=== PATIENT | female | born 1945 | race Caucasian/White ===

== ENCOUNTER 2022-01-19 14:32 | Emergency (ER) | payer MEDICARE, OTHER ==
[~2022-01-19] VITALS: Ht 162.6 cm; Wt 59.0 kg
== END 2022-01-19 17:56 | disposition home or self-care (01) ==
LOC: ED 14:32
DX: R60.0 Localized edema (principal); I10 Essential (primary) hypertension
CPT/HCPCS: 93971; 99284-25

== ENCOUNTER 2022-02-20 00:04 | Observation (INO) | payer MEDICARE, OTHER ==
[~2022-02-20] VITALS: Ht 162.6 cm; Wt 63.4 kg
[2022-02-20] MEDS ORDERED: DICLOFENAC SOD100 G1 TOP (00:30)
[2022-02-20] MEDS ORDERED: BACLOFEN10 MG PO (00:30)
[2022-02-20] MEDS ORDERED: TRIAMCINOLONE A15 G1 TOP (00:31)
[2022-02-20] MEDS ORDERED: CITALOPRAM HBR10 MG PO (00:31)
[2022-02-20] MEDS ORDERED: CARBAMAZEPINE200 MG PO (00:31)
[2022-02-20] MEDS ORDERED: AMITRIPTYLINE H25 MG PO (00:32)
[2022-02-20] MEDS ORDERED: SIMVASTATIN20 MG PO (00:32)
[2022-02-20] MEDS ORDERED: FAMOTIDINE20 MG PO (00:32)
[2022-02-20] MEDS ORDERED: LISINOPRIL5 MG PO (00:32)
[2022-02-20] MEDS ORDERED: ALENDRONATE SOD70 MG PO (00:33)
--- NOTE | 2022-02-20 04:00 | NUR ---
PT ARRIVED TO THE FLOOR, PT HAD STOOL INCONT. CLEANED PT UP AND PLACED ATTENDS ON PT. PT ON LEVOPHED AT THIS TIME. MAP GREATER THAN 80, TITRATED LEVOPHED. RSP EVEN AND UNLABORED. PT DENIES ANY CONCERNS AT THIS TIME. WILL CONTINUE TO MONITOR.
--- NOTE | 2022-02-20 05:58 | NUR ---
PT LAYING IN BED C/O GROIN PAIN AND AB PAIN. ASKING FOR PRN PAIN MEDS. NO PO MEDS AVAILABLE INFORMED PT THAT MD WILL BE IN SOON OR I WILL CALL FOR SOMETHING . PT IS ASKING FOR TYLENOL . PT REPORTS HAD ANOTHER INCONT EPISODE WILL CLEAN PT UP . VSS DC'D LEVOPHED AT THIS TIME MAP 72. CALL LIGHT WITHIN REACH WILL CONTINUE TO MONITOR
--- NOTE | 2022-02-20 06:34 | NUR ---
PT HAD ANOTHER INCONT BM. BRIGHT RED BLOOD NOTED. PT REPORTS IRRITAION TO WILFREDO AREA ASKING FOR PRN PAIN MEDS. WILL MEDICATE WITH TYLENOL APPLIED BARRIER CREAM, WILL CONTINUE TO MONITOR
--- NOTE | 2022-02-20 07:39 | NUR ---
REPORT RECEIVED FROM RUTH MUNOZ. PT RESTING IN BED WITH EYES CLOSED, RESPIRATIONS EVEN AND UNLABORED, RR OF 14. BLOOD PRESSURE STABLE AT 116/55. NO ADDITIONAL NEEDS AT THIS TIME. BED RAILS UP. CALL LIGHT WIHTIN REACH. PT ALLOWED TO REST.
--- NOTE | 2022-02-20 07:44 | NUR ---
MORNING ASSESSMENT DUE. PT RESTING IN BED WITH EYES CLOSED. RESPIRATIONS EVEN AND UNLABORED. RR OF 12 WITH OXGYEN SATRUATIONS 99% ON ROOM AIR. PT AWAKENS TO VOICE. PT REPORTS SHE IS FEELING "100% BETTER." PT DENIES PAIN AT THIS TIME STATING "THE TYELNOL REALLY HELPS." PT DENIES ABDOMINAL CRAMPING. BLOOD PRESSURE REMAINS STABLE. PT REPORTS SHE HAS VOIDED IN HER DEPENDS. PT STATES SHE FELT THE URGE TO VOID BUT "I JUST WANTED TO SLEEP AND NOT GET UP SO I WENT IN MY DEPENDS." PT ASSIST WITH ROLLING SIDE TO SIDE. WILFREDO CARE DONE. DEPENDS CHANGED. IV LINES ASSESSED. WNL, BLOOD RETURN NOTED FROM BOTH LINES. BOTH LINES SALINE LOCKED, ALCOHOL CAPS APPLIED. NO S/S OF PHLEBITIS NOTED. CENTRAL LINE WNL, DRESSING C/D/I. WHITE LINE INFUSING IV FLUIDS, BLUE AND BROWN LINES SALINE LOCKED, ALCOHOL CAPS APPLIED. BRISK BLOOD RETURN NOTED FROM ALL LUMENS. PT ALERT AND OREINTED TO ALL. WEAKENESS PER BASELINE REMAINS ON LEFT SIDE. STAND BY ASSIST FOR LINE AND TUBE MANGEMENT UP TO CHAIR. PT TOLERATES MOVEMENT WELL BUT COMPLAINS ABOUT LINES AND TUBES. VITAL SIGNS REMAIN STABLE WITH TRANSFER. LUGN SOUNDS CLEAR. PT TOLERATIN ROOM AIR WITH OXGYEN SATUARTIONS ABOVE 94%. NORMAL SINUS RYTHEM NOTED ON MONITOR WITH HR IN THE 80'S. MURMUR HEARD. GENERALIZED SWELLING NOTE TO LLE, PT REPORTS THIS IS PER BASLINE. NO ADDITIONAL DIARRHEA NOTED SO FAR THIS MORNING. ABODEMON SOFT AND NON TENDER. BOWEL TONES ACTIVE. PT DENIES ADDITIONAL REQUESTS OR COMPLAINTS. CLEAR LIQUID BREAKFAST PROVIDED. NO ADDITIONAL REQUESTS OR COMPLAINTS. CALL LIGHT WITHIN REACH.
--- NOTE | 2022-02-20 09:37 | NUR ---
THIS RN TO ROOM TO CHECK ON PT. PT GETTING UP TO BEDSIDE COMODE STATING "I MIGHT HAVE A BOWEL MOVEMENT." PT DENIES PAIN AND NAUSEA. PT STATES SHE HAS SPOKEN WITH HER SON AND HE WILL BRING IN HER QUAN MATERIALS. PT DENIES ADDITIONAL REQUESTS OR COMPLAINTS. CALL LIGHT WITHIN REACH. BED RAILS UP.
--- NOTE | 2022-02-20 09:56 | NUR ---
PT CALLED TO HAVE A BM. THIS CNA2 TRANSFERED HER TO THE COMMODE FROM THE CHAIR USING CONTACT GUARD. PT USES A WALKER AT HOME. WILL NEED TO GET A WALKER FOR ASSISTANCE. PT WEAK ON L SIDE WHEN STANDING BUT IS ABLE TO PIVOT W/HELP. PT WAS ABLE TO VOID W/MIXTURE OF STOOL/URINE MEASURING 200ML AND PERFORMED OWN WILFREDO CARE WHILE BEING HELD STEADY BY CNA2/RN. LINENES WERE CHANGED BY RN AND ASSISTED CNA2 W/TRANSFERING PT BACK TO CHAIR. PT WAS GIVEN A WARM BLANKET AND HEELS ELEVATED. PT CALLED HER SON TO BRING HER CROCHETING BAG. HE SHOULD ARRIVE SHORTLY. CALL LIGHT IS IN REACH IF PT NEEDS ANYTHING.
--- NOTE | 2022-02-20 10:07 | NUR ---
THIS RN TO ROOM WITH DR. TREJO FOR ROUNDS. PT REMAINS UP TO CHAIR. PT TELLING LONG STORIES. PT DENIES DIZZINESS, PAIN OR NAUSEA. PT VERBALIZES UNDERSTANDING OF PLAN OF CARE AND STATES HER QUESTIONS HAVE BEEN ASNWERED. NO ADDITIONAL REQUESTS OR COMPLAINTS. CALL LIGHT WITHIN REACH.
--- NOTE | 2022-02-20 10:53 | NUR ---
pT CALL LIGHT ON. PT REQUESTS ASSISTANCE UP TO RESTROOM. STAND BY ASSIST UP TO BEDSIDE COMODE. PT VOIDS 600ML URINE. WILFREDO CARE DONE. SMALL AOUNT OF BRIGHT RED BLOOD NOTED AT RECTUM, PT REPORTS HISTORY OF HEMMORROIDS. BARRIER CREAM APPLIED. PT REPORTS GENRALIZED PAIN AND REQUESTS HER BACLOFEN. SEE MAR FOR MEDIATION GIVEN. PT REPORTS HER ONLY REAL PAIN IS "THIS NEEDLE IN MY NECK." EDUCATION DONE REGARDING CENTRAL LINE. VITAL SIGNS STABLE. PT DENIES ADDITIONAL REQEUSTS OR COMPLAINTS. CALL LIGHT WITHIN REACH. BED RAILS UP.
--- NOTE | 2022-02-20 12:08 | NUR ---
NOON ASSESSMENT AND MEDICATION DUE. PT REMAINS UP TO CHAIR, EATING LUNCH. PT DENIES PAIN AND NASUEA. PT DENIES ADDITIONAL DIARRHEA EPISODES BUT FOR X1 THIS MORNING. IV SITES REMAIN WNL. NO S/S/ OF PHLEBITIS NOTED. CENTRAL LINE WNL. REMAINS SALINE LOCKED WITH IV FLUIDS INFUSING INTO WHITE LUMEN, OTHER LINES REMAIN SALINE LOCKED WITH ALCOHOL CAPS IN PLACE. LEFT SIDED WEAKNESS REMAINS PER BASLINE. PT HAS BEEN ABLE TO GET UP TO COMODE WITH STAND BY ASSIST AND LINE AND TUBE MANAGEMENT. STRONG TANK BUILDER HELPER, PLANTAR, AND DORSI FELXTION NOTED. LUNG SOUNDS CLEAR. HEART MONITOR CONTINUES TO SHOW NORMAL SINUS RYTHEM WITH HR 70-80'S. +2 PITTING EDEMA NOTED TO LLE, PT REPORTS "THAT LEG IS ALWAYS SWOLLEN FROM MY STROKE." ABDOMEN SOFT AND NON TENDER. BOWEL TONES ACTIVE. PT TOELARTING REGULAR DIET WITH MODREATE APPITITE. REDENESS NOTED TO GLUTEAL AREA. BARRIER CREAM IN PLACE. PT REMAINS UP TO CHAIR, EATING LUNCH AND WATCHING TV. NO ADDITIONAL REQUESTS OR COMPLAINTS. CALL LIGHT WITHIN REACH.
--- NOTE | 2022-02-20 13:00 | NUR ---
MEDICATION DUE. PT REMAINS UP TO CHAIR. WATCHING TV. PT CONTINUES TO DENY PAIN AND NAUSEA. NO ADDITIONAL STOOL NOTED, PT UPDATED ON NEED FOR SAMPLE AND ADVISE TO NOTIFY NURSING TEAM WHEN SHE NEEDS TO GO. MEDICATION GIVEN. PT STATES SHE WOULD LIKE HER SON OR DAUGHTER IN LAW (DAISY) UPDATED. NO ADDITIONAL NEEDS. CALL LIGHT WITHIN REACH.
--- NOTE | 2022-02-20 13:07 | NUR ---
PTS SON YAMEL AND DAUGHTER IN LAW DAISY CALLED AND UPDATED ON PTS CONDITION AND PLAN OF CARE. PTS SON AND DAUGHTER IN LAW VERBALIZE UNDERSTANDING OF PLAN OF CARE AND STATE THEIR QUESTIONS HAVE BEEN ANSWERED. PT UPDATED THAT HER FAMILY WILL BE INTO VISIT "SHORTLY." NO ADDITIONAL NEEDS AT THIS TIME. CALL LIGHT WITHIN REACH.
--- NOTE | 2022-02-20 14:20 | NUR ---
THIS RN TO ROOM TO CHECK ON PT. PT REMAINS UP TO CHAIR. PT VISITING WITH HER SON YAMEL. DICLOFENAC PAIN CREAM BROUGHT TO HOSPITAL BY PTS SON AND PT REQUESTS TO USE IT "FOR MY SHOULDER WHEN I QUAN." WILL OBTAIN ORDER FROM MD. PT DENIES PAIN AND NAUSEA. VITAL SIGNS REMAIN STABLE. NO ADDITIONAL DIARRHEA NOTED YET THIS SHIFT. CALL LIGHT WITHIN REACH.
--- NOTE | 2022-02-20 14:41 | NUR ---
OFFERED PT A BEDBATH/SHAMPOO CAP. PT REFUSED AND STATED THAT SHE WOULD RATHER DO HER CARES WHEN SHE GETS HOME. SHE IS ADAMANT ON HER INDEPENDENCE AT HOME. PT IS RESTING IN CHAIR W/CALL LIGHT IN REACH.
--- NOTE | 2022-02-20 14:54 | NUR ---
ORDER OBTAINED FROM DR. TREJO FOR PTS HOME DICLOFENAC GEL. MARBELLA ENTERED AND MEDICATION KORI TO [facility] FOR VARIFICATION.
--- NOTE | 2022-02-20 15:12 | NUR ---
PT HERE FOR HYPOVOLEMIA RELATED TO DIARRHEA. PT UP WITH STAND BY TO 1 PERSON ASSIST TO CHAIR THIS SHIFT. PT ADVANCED TO REGULAR DIET AND TOELRATING WELL. DIARRHEA SLOWING DOWN THIS SHIFT. ADDITIONAL STOOL SAMPLE PENDING. PT REMAINS IN NORMAL SINUS RYTHEM THROUGHOUT SHIFT WITH HEART RATE 70-80'S. BLOOD PRESSURES STABLE SO FAR THIS SHIFT WITHOUT NEED FOR VASOPRESSORS. ABDOMEN SOFT AND NON TENDER. BOWEL TONES ACTIVE. IJ LINE REMAINS IN PLACE, PATENET WITH IV FLUIDS INFUSING. PTS FAMILY AT BEDSIDE THIS SHIFT. PT VOIDING QUANTITY SUFFICIENT. PT USES CALL LIGHT AND MAKES NEEDS KNOWN.
--- NOTE | 2022-02-20 15:39 | NUR ---
THIS RN TO ROOM TO CHECK ON PT. PT REQUESTS TO USE HER "PAIN CREAM" FOR HER RIGHT THUMB. PT APPLIES CREAM TO RIGHT THUMB AND RIGHT SHOULDER. PT REPORTS ACHING PAIN AT 2/10 IN THESE AREAS. PT DENIES OTHER PAIN OR NAUSEA.PT VISITING WITH FAMILY. NO ADDITIONAL NEEDS AT THIS TIME. CALL LIGHT WITHIN REACH.
--- NOTE | 2022-02-20 16:06 | NUR ---
AFTERNOON ASSESSMENT DUE. PT REMAINS UP TO CHAIR. PT COMPLAINS OF AIR BLOWING ON HER FACE AND STATES SHE IS NOT RECEIVING ENOUGH OF HER CARBAMAZAPIME AND BALCOFEN. PT REPORTS SHE TAKES 250MG OF CARBOMAZAPIME AND 30MG BACLOFEN AT BEDTIME. AND 30MG BACLOFEN MORNING AND THE MIDDLE OF THE DAY WELL 150MG OF CARBAMAZAPIN THREE TIMES DURING THE DAY IN ADDITION TO EVENING DOSES. PT REQUESTS THAT THESE MEDICATIONS BE RESUMED. WILL CONSULT MD. PT DENEIS PAIN AND NAUSEA STATING ACHING IN HER THUMB HAS RESOLVED. PT REMAINS ALERT AND OREINTED TO ALL. SMALL AMOUNT OF LEFT SIDED WEAKNESS NOTED, UNCHANGED. STRONG GRIB, PLANTAR AND DORSI FELXION NOTED. PT ABLE TO STAND WITH STAND BY ASSIST. FWW BROUGHT TO ROOM. PT ENCOURAGED TO AMBULATE. PT DECLINES AT THIS TIME. LUNG SOUNDS CLEAR. HEART TONES REGULAR, HR 80'S. BLOOD PRESSURE STABLE. +2 PITTING EDEMA CONTINUES IN LLE, UNCHANGED. ABDOMEN REMAINS SOFT AND NON TENDER. NO ADDITIONAL DIARREAH NOTED YET THIS SHIFT. BOWEL TONES NORMO ACTIVE. PT REPORTS SHE FEELS "100% BETTER" THAN YESTERDAY AND "STRONGER" THAN THIS MORNING. PT DENIES ADDITIONAL REQUESTS OR COMPLAINTS. CALL LIGHT WITHIN REACH. FAMILY AT BEDSIDE.
--- NOTE | 2022-02-20 16:20 | NUR ---
TRANSFER TO MED SURG ORDERS PLACED. DR. TREJO CONSULTED AND STATES OK TO REMOVE CENTRAL LINE. LEAVING PERIPHERAL IV LINES IN PLACE. IV FLUIDS TRANSFERED TO LEFT AC IV SITE, SITE ASSESSED, WNL. NO S/S OF PHLEBITIS NOTED, BRISK BLOOD RETURN NOTED. DR TREJO ALSO STATES TO INCREASE DOSE OF BACLOFEN AND CARBAMAZAPINE TO PTS HOME DOESES. PHARMACIST CALLED AND WILL ADJUST DOSES. CENTRAL LINE DC'D PER PROTOCOL. OCCLUSIVE DRESSING APPLIED. AWAITING MED/SURG ROOM. NO ADDIITONAL NEEDS AT THIS TIME. CALL LIGHT WITHIN REACH.
--- NOTE | 2022-02-20 16:42 | NUR ---
REPORT CALLED TO RUTH GOLD, ON MED/SURG WHO IS ASSUMING CARE OF PT.
--- NOTE | 2022-02-20 17:10 | NUR ---
PT ARRIVES TO THE FLOOR VIA CHAIR AND BUILDING SERVICES TECHNICIAN FROM CCU. PT ALERT AND ORIENTED, VS STABLE. DINNER DELIVERED - PT DENIES FURTHER NEEDS. CALL LIGHT IN REACH.
--- NOTE | 2022-02-20 18:20 | NUR ---
Assisted patient to the commode. no specimen could be collected at this time.
--- NOTE | 2022-02-20 18:39 | NUR ---
RN ROUNDING ON PT - PT UP IN CHAIR CROCHETING AND WATCHING TV. PT PROVIDED CHAPSTICK PER HER REQUEST, DENIES FURTHER NEEDS AT THIS TIME. IV SITE TOLERATING INFUSION WITHOUT DIFFICULTY. PT HAS NOT HAD BM SINCE BEING TO [facility] FLOOR.
--- NOTE | 2022-02-20 19:07 | NUR ---
SHIFT REPORT RECEIVED FROM JOSSY GOLD AT BEDSIDE. pt AWAKE AND TALKING ON THE PHONE, REQUESTING SOMETHING FOR HER "ALLERGIES", REPORTS TAKING BENADRYL AT HOME. IV SITE WNL, FLUIDS INFUSING DIRECTED. CALL LIGHT IN REACH. BOARD UPDATED.
--- NOTE | 2022-02-20 20:31 | NUR ---
PT CALLED, REQUESTED BSC, WANTED 2 ASSIST D/T HER LEFT KNEE HYPEREXTENDS, AND ONE LEG IS SHORTER THAN THE OTHER SHE STATES. WITH ASSIST OF ANOTHER RN, PT UP TO BSC, SHE REMARKED THAT SHE HASN'T HAD "AN RN TAKE HER TO BATHROOM BEFORE". ABLE TO CLEAN SELF WHILE STAFF SUPPORTED HER, BACK INTO RECLINER CHAIR, ALL PERSONAL SUPPLIES WITHIN HER REACH, INCLUDING CALL LIGHT. REMINDED RN THAT SHE WANTS SOME "BENADRYL" FOR ALLERGY SYMPTOMS, AND HER DRESSING CHANGED ON HER IV SITE RAC. INFORMED PT PRIMARY WHO WAS ALREADY AWARE, AND PLANS TO DO SUCH.
--- NOTE | 2022-02-20 21:35 | NUR ---
PT REQUESTED AND RECEIVED SANDWICH. ASSISTED PT. PT VERY TALKATIVE. ABOUT HOME LIFE, [place]. PRIMARY RN IN ROOM TO ADMINISTER MEDICATONS.
--- NOTE | 2022-02-20 22:00 | NUR ---
ASSESSMENT COMPLETE, SCHEDULED PAIN GIVEN ALSONG WITH PRN TYLENOL. THIS RN SPOKE WITH DR TREJO ON THE PHONE pt IS REQUESTING SOME MD SURINDER PLACED ORDERS AND MED WAS GIVEN. VSS, pt VERY INTERACTIVE WITH STAFF AND CONVERSATIONAL. CLEAR SMALL OPSITE NOTED ON TOP OF RIGHT FOOT, pt REPORTS SHE "LEFT MY SALONPAS PATCH ON TOO LONG". SMALL SORE NOTED UNDER OPSITE, DIAMETER <1CM. NO DRAINAGE NOTED. BLE ELEVATED IN BED, +1 EDEMA NOTED TO LLE, TRACE EDEMA TO RLE. PRN VOLTARAN ALSO PROVIDED TO RIGHT SHOULDER/NECK. CALL LIGHT IN REACH.
--- NOTE | 2022-02-20 22:45 | NUR ---
pt UP 1-2PA TO BSC, pt REFUSES TO USE HOSPITAL PROVIDED WALKER, STATES, "I WILL NOT USE ANYTHING OTHER THAN MY WALKER ON THESE FLOORS". pt VOIDED 500MLS, LIGHT YELLOW URINE. VERY SMALL BLOOD TINGED TISSUE NOTED AT BOTTOM OF TOILET HAT. pt REPORTS SCANT BLOOD WHEN WIPING HER BACKSIDE, NO BM NOTED. pt BACK IN CHAIR, CALL LIGHT IN REACH.
--- NOTE | 2022-02-20 22:50 | NUR ---
[place] [facility] [place] REFUSES TO USE HOSPITAL PROVIDED WALKER, STATES, "I WILL NOT USE ANYTHING OTHER THAN MY WALKER ON THESE FLOORS". pt VOIDED 500MLS, LIGHT YELLOW URINE. VERY SMALL PIECE OF WHAT LOOKS SIMILAR TO BODILY TISSUE NOTED AT BOTTOM OF TOILET HAT, APPEARANCE SIMILAR TO WHEN MENSTRUATING. SIZE SMALLER THAN A PEA. pt REPORTS SCANT BLOOD WHEN WIPING HER BACKSIDE, NO BM NOTED. pt REPORTS HISTORY OF HEMMORRHOIDS.pt BACK IN CHAIR, CALL LIGHT IN REACH.
--- NOTE | 2022-02-20 23:51 | NUR ---
pt REPORTS BLOODY NOSE, REPORTS D/T ALLERGIES. BLOODY NOSE HAS STOPED. WILL MONITOR, NO ADDITIONAL NEEDS. CALL LIGHT IN REACH.
--- NOTE | 2022-02-21 02:00 | NUR ---
in room to complete, vs. vss. pt awoke to voice, pillow placed under ble per pt request for additional comfort. pt remains in chair, call light in reach. no further needs.
--- NOTE | 2022-02-21 04:12 | NUR ---
ROUNDED ON pt, pt RESTING QUIETLY IN BED. NO DISTRESS NOTED, CALL LIGHT IN REACH.
--- NOTE | 2022-02-21 07:00 | NUR ---
PATIENT GOT UP TO BEDSIDE COMMODE. 1 PA. PATIENT IS BACK IN THE CHAIR. NO OTHER NEEDS AT THIS TIME. CALL LIGHT AND SIDE TABLE IN REACH. PATIENT VOIDED 500ML YELLOW AND CLOUDY. PRIMARY RN IS AWARE.
--- NOTE | 2022-02-21 07:01 | NUR ---
DR TREJO MADE AWARE OF BLOODY NOSE AND BLOOD THAT WAS NOTED EARLIER IN SHIFT WHEN pt WIPED HERSELF IN THE BACK. NO BM THIS SHIFT. NO NEW ORDERS RECEIVED AT THIS TIME.
--- NOTE | 2022-02-21 07:35 | NUR ---
REPORT FROM ISABEL TROY RN.
[2022-02-21] MEDS ORDERED: CARBAMAZEPINE100 MG PO (07:50)
--- NOTE | 2022-02-21 07:55 | NUR ---
MORNING ASSESSMENT DONE, PATIENT IS UP TO CHAIR. PATIENT SOUNDLY ASLEEP, WHEN WOKE SHE REPORTED 6/10 LEFT SIDE CHRONIC PAIN. TYLENOL GIVEN FOR THIS. PATIENT DENIES NAUSEA OR NEED TO USE BATHROOM AT THIS TIME. IVF INFUSING TO LEFT ARM. WALKER WITH TENNIS BALLS PROVIDED.
[2022-02-21] MEDS ORDERED: ASPIRIN-DIPYRI1 EACH PO (07:59)
[2022-02-21] MEDS ORDERED: CEPHALEXIN250 MG PO (08:00)
--- NOTE | 2022-02-21 09:01 | NUR ---
PATIENT UP AND WORKING ON HER QUAN. SQ LOVENOX GIVEN. PATIENT REPORTS HER LEFT SIDE PAIN 2/10.
--- NOTE | 2022-02-21 10:20 | NUR ---
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 Her son is Benjamin Oshea, he has [facility] lending closet for DME. She has access to every piece of DME she needs. Pt currently has a cane, 2 walkers, wc, and electric wc. States she marin not need a wc, but has in case she needs them. She bought a house with her other son and DIL and lives in the [facility] apartment in the basement. She also has a [employer] necklace. She does her own laundry, son drives her and she does her own grocery shopping in her electric wc, also does own cooking. Pt would like to dc today and I let her know she will need to discuss with Dr. Smith. Pt states she has a very supportive family and denies needs for dc.
[2022-02-21] MEDS ORDERED: TYLENOL EXTRA500 MG PO (10:38)
[2022-02-21] MEDS ORDERED: BENADRYL ALLERG25 MG PO (10:38)
--- NOTE | 2022-02-21 11:59 | NUR ---
PT ALERT, ORIENTED AND SITTING UP IN CHAIR CROCHETTING. STATED SHE NEEDS TO STAY BUSY, AND NEEDLE POINT HELPS. PT HOPES TO DC TODAY. GAVE ENCOURAGEMENT AND BLESSING. WILL FOLLOW
--- NOTE | 2022-02-21 13:23 | NUR ---
PATIENT GIVEN AFTERNOON MEDICATION, MAGNESIUM INFUSION FOR NEXT HOUR. PATIENT DENIES OTHER NEEDS, WILL DISCHARGE THIS AFTERNOON.
--- NOTE | 2022-02-21 14:29 | NUR ---
PATIENT GIVEN DISCHARGE INSTRUCTIONS, PATIENT IS EXPECTING TRANSPORTATION HOME AFTER 3PM.
== END 2022-02-21 15:34 | disposition home or self-care (01) ==
LOC: ED 00:04 → CCU 00:06 → MS 00:06 → CCU 00:06 → MS 17:05
PROVIDERS: ADMIT Internal Medicine; ATTEND Internal Medicine
DX: K52.9 Noninfective gastroenteritis and colitis, unspecified (principal); I10 Essential (primary) hypertension; K21.9 Gastro-esophageal reflux disease without esophagitis; E78.5 Hyperlipidemia, unspecified; G50.0 Trigeminal neuralgia; F39 Unspecified mood [affective] disorder; Z20.822 Contact with and (suspected) exposure to COVID-19
CPT/HCPCS: 36415; 71045; 74018; 80048; 80053; 83605; 83735; 85025; 87040; 87045; 87077; 87186; 87493; 87502; 96361; 96366; 96372; 96374; 96375; 99285-25; A9270; C9803; G0378; J1650; J3475; J7030; J7121; U0003

== ENCOUNTER 2023-01-08 15:01 | Emergency (ER) | payer MEDICARE, OTHER ==
[~2023-01-08] VITALS: Ht 162.6 cm; Wt 63.0 kg
[~2023-01-08 15:01] MED LIST: ALENDRONATE SOD70 MG PO; AMITRIPTYLINE H25 MG PO; ASPIRIN-DIPYRI1 EACH PO; BACLOFEN10 MG PO; BENADRYL ALLERG25 MG PO; CARBAMAZEPINE100 MG PO; CARBAMAZEPINE200 MG PO; CEPHALEXIN250 MG PO; CITALOPRAM HBR10 MG PO; DICLOFENAC SOD100 G1 TOP; FAMOTIDINE20 MG PO; LISINOPRIL5 MG PO; SIMVASTATIN20 MG PO; TRIAMCINOLONE A15 G1 TOP; TYLENOL EXTRA500 MG PO
[2023-01-08] MEDS ORDERED: CLEOCIN HCL300 MG PO (17:30)
[2023-01-08 17:51] VITALS: BP 121/62
== END 2023-01-08 17:52 | disposition home or self-care (01) ==
LOC: ED 15:01
DX: L03.116 Cellulitis of left lower limb (principal); I10 Essential (primary) hypertension; Z79.899 Other long term (current) drug therapy; Z79.82 Long term (current) use of aspirin
CPT/HCPCS: 36415; 80053; 83605; 85025; 93971; 96374; 99284-25

== ENCOUNTER 2023-04-28 07:51 | Emergency (ER) | payer MEDICARE, OTHER ==
[~2023-04-28] VITALS: Ht 160 cm; Wt 63.0 kg
[~2023-04-28 07:51] MED LIST changes: +CLEOCIN HCL300 MG PO
[2023-04-28 10:02] VITALS: BP 148/74
== END 2023-04-28 10:00 | disposition home or self-care (01) ==
LOC: ED 07:51
DX: S01.01XA Laceration without foreign body of scalp, initial encounter (principal); I10 Essential (primary) hypertension; W18.30XA Fall on same level, unspecified, initial encounter; Z86.73 Personal history of transient ischemic attack (TIA), and cerebral infarction without residual deficits; Z79.899 Other long term (current) drug therapy; Z79.82 Long term (current) use of aspirin
CPT/HCPCS: 12001; 70450; 99284-25; A9270

== ENCOUNTER 2025-01-06 10:33 | Emergency (ER) | payer MEDICARE, OTHER ==
[~2025-01-06] VITALS: Ht 160 cm; Wt 66.0 kg
[2025-01-06] MEDS ORDERED: HYDROCHLOROTH12.5 MG PO (10:51)
[2025-01-06] MEDS ORDERED: ROSUVASTATIN CA40 MG PO (10:51)
[2025-01-06 11:11] LABS: ALBUMIN 3.5 g/dL (3.4-5.0); ALBUMIN/GLOBULIN RATIO 1.13 (1.1-2.4); BILIRUBIN, TOTAL 0.4 mg/dL (0.2-1.0); CALCIUM 8.4 mg/dL (8.5-10.1); MAGNESIUM 1.9 mg/dL (1.8-2.4); POTASSIUM 3.6 mmol/L (3.5-5.1); PROTEIN, TOTAL 6.6 g/dL (6.4-8.2)
[2025-01-06 11:35] LABS: HEMATOCRIT 21.3 % (34.1-44.9); HEMOGLOBIN 7.5 g/dL (11.2-15.7); MCH 33.8 PG (25.6-32.2); MCHC 35.2 g/dL (32.2-35.5); MCV 95.9 fL (79.4-94.8); RBC 2.22 M/uL (3.93-5.22)
[2025-01-06 11:36] LABS: PLATELET COUNT 72 K/uL (182-369)
[2025-01-06 11:38] LABS: ANION GAP 11.6 (7-21); BUN/CREATININE RATIO 20.33 (6.0-28.6); CREATININE, SERUM 0.59 mg/dL (0.55-1.02)
[2025-01-06 11:45] LABS: LYMPHOCYTES, MANUAL DIFF 75; NEUTROPHILS, MANUAL DIFF 25
[2025-01-06 12:28] LABS: INR 1.06 (0.80-1.30); PROTIME 13.2 Sec (11.2-14.2)
[2025-01-06 12:38] LABS: BASOPHILS 0 % (0.1-1.2); HEMATOCRIT 20.5 % (34.1-44.9); HEMOGLOBIN 7.3 g/dL (11.2-15.7); MCH 34.1 PG (25.6-32.2); MCHC 35.6 g/dL (32.2-35.5); MCV 95.8 fL (79.4-94.8); MONOCYTES 0 % (4.7-12.5); PLATELET COUNT 72 K/uL (182-369); RBC 2.14 M/uL (3.93-5.22)
[2025-01-06] MEDS ORDERED: TRIMETHOPRIM/SULFAMETHOXAZOLE 1 EA TAB PO SCH (13:55)
[2025-01-06] MEDS ORDERED: FLUCONAZOLE 100 MG TAB PO SCH (13:59)
[2025-01-06] MEDS ORDERED: FLUCONAZOLE 200 MG TAB PO SCH (14:04)
[2025-01-06 15:24] LABS: ABO B; ANTIBODY SCREEN NEGATIVE; RH POSITIVE
[2025-01-06 16:16] LABS: IS CROSSMATCH COMPATIBLE
[2025-01-06 16:22] LABS: ABO B; RH POSITIVE
[2025-01-06] MEDS ORDERED: ONDANSETRON 4 MG TAB ODT SL ONE (17:00)
[2025-01-06] MEDS ORDERED: ACETAMINOPHEN 500 MG TAB PO ONE (17:00)
[2025-01-06] MEDS ORDERED: fentaNYL citrate 100 MCG/2 ML VIAL IV ONE (17:15)
[2025-01-06 17:21] VITALS: BP 129/50
--- NOTE | 2025-01-07 15:59 | EKG ---
[facility] [address] [place] [address] Signed Normal sinus rhythm Minimal voltage criteria for LVH, may be normal variant ( Sokolow-Ngo ) Borderline ECG No previous ECGs available Confirmed by Tova Navarro MD () on 01/07/2025 3:58:51 PM Electronically Signed By: TOVA NAVARRO MD 01/07/25 1559 PATIENT NAME: VICTORINOROBERTOMICHAEL ROMERO Electrocardiogram DATE OF : 43 PHYSICIAN: TOVA NAVARRO MD REPORT #: [id number] REPORT IS CONFIDENTIAL AND NOT TO BE RELEASED WITHOUT AUTHORIZATION
== END 2025-01-06 17:21 | disposition short-term general hospital (02) ==
LOC: ED 10:33
PROVIDERS: Emergency Medicine
DX: C95.00 Acute leukemia of unspecified cell type not having achieved remission (principal); K21.9 Gastro-esophageal reflux disease without esophagitis; R05.9 Cough, unspecified; R07.81 Pleurodynia; I10 Essential (primary) hypertension; Z79.82 Long term (current) use of aspirin; Z79.899 Other long term (current) drug therapy
CPT/HCPCS: 36415; 36430; 71045; 71260; 80053; 83615; 83735; 84484; 84550; 85025; 85384; 85610; 86850; 86900; 86901; 86922; 87040; 93005; 93010; 99285-25; A6590; A9270; J3010; P9016; Q9967